=== PATIENT | male | born 1970 | race Caucasian/White ===

== ENCOUNTER → 2016-11-28 | Day surgery (SDC) | payer OTHER ==
[~2016-11-28] MED LIST: IMITREX PO
--- NOTE | ~2016-11-28 | OR ---
Unit #: [id number] #: [id number] Patient: VI GILL [id number] [address] [place], [place] [address] [id number] O MR#: [id number] NAME: VI GILL ROOM: Date of Procedure: 11/28/2016 Admission Date: 11/28/2016 Surgeon: Raymundo Montemayor M.D. : 1970 Attending Physician: Raymundo Montemayor M.D. Primary Care Physician: Mae Casey M.D. OPERATIVE REPORT PREOPERATIVE DIAGNOSES Colorectal cancer screening in a high-risk patient. The patient has family history of colon cancer in his father. PROCEDURES PERFORMED Colonoscopy and polypectomy. POSTOPERATIVE DIAGNOSES 1. The patient had 2 polyps in the rectosigmoid area. These were 6 and 8 mm each. Both were removed using snare polypectomy, retrieved and sent for histology. 2. Scant sigmoid diverticulosis. 3. Rest of the examination up to cecum was normal. The quality of the prep was excellent. RECOMMENDATIONS 1. Follow up results of polyp histology. 2. Consider repeat colonoscopy in 5 years. SEDATION USED MAC. DESCRIPTION OF PROCEDURE Following detailed explanation of the potential risks and complications of a colonoscopy, namely perforation, bleeding, and complications related to sedation, the patient was brought to GI lab and laid in the left lateral decubitus position. A digital rectal examination was performed, which was normal. Lubricated tip of the Olympus video colonoscope was inserted through the anus and advanced under direct vision. The scope was advanced and passed up to sigmoid into descending colon. Scant small diverticula were noted in this area. The scope tip was then navigated all the way up to cecum with visualization of ileocecal valve and the appendiceal orifice. Preparation was excellent with good visualization and photodocumentation was obtained. Successive segments of the colonic mucosa were examined upon withdrawal and appeared unremarkable except for 2 sessile polyps noted in the rectosigmoid. These were about 7 to 8 mm in size each. Both were removed using snare polypectomy. They were retrieved and sent for histology. The patient was also noted to have scant sigmoid diverticulosis. No hemorrhoids were seen in the anal verge. The scope was then withdrawn. The patient returned to the recovery area. He tolerated the procedure without any postprocedure complications. Unit #: [id number] #: [id number] Patient: VI GILL Dictated by... Olegario Mills/raj TD: 11/28/2016 15:17 JOB #: [id number] OPERATIVE REPORT Page 1 of 1 X Raymundo Montemayor MD PROCEDURE OPERATIVE NOTE
== END | disposition home or self-care (01) ==
LOC: COPS 07:12
DX: Z12.11 Encounter for screening for malignant neoplasm of colon (principal); D12.8 Benign neoplasm of rectum; K57.30 Diverticulosis of large intestine without perforation or abscess without bleeding; F17.210 Nicotine dependence, cigarettes, uncomplicated; Z80.0 Family history of malignant neoplasm of digestive organs; Z98.890 Other specified postprocedural states
CPT/HCPCS: 88305; J2250